=== PATIENT | female | born 1980 | race African-American/Black ===

== ENCOUNTER → 2017-08-01 | Outpatient (CLI) | payer OTHER ==
[2014-07-11 10:47] VITALS: BP 115/69
[~2017-08-01] MED LIST: IRON18TA PO; KETO15CR2 TP; LORA10CA PO; RABE20TA18 PO
--- NOTE | 2017-08-01 15:58 | RAD ---
Examination: Ultrasound soft tissue neck History: History of neck fullness Comparison: None available Findings: Small benign-appearing lymph nodes identified in the submandibular and cervical region. No obvious mass identified. Impression: Small benign-appearing subcentimeter lymph nodes identified in the cervical and submandibular region.
--- NOTE | 2017-08-01 16:03 | RAD ---
DATE: 07/24/2017 EXAM: DIGITAL DIAGNOSTIC BILATERAL, BREAST RIGHT HISTORY: Left breast heaviness for one year COMPARISON: 10/06/2015 This study was interpreted with the benefit of Computerized Aided Detection (CAD). FINDINGS: Breast Density: HETERO The breast parenchyma Is heterogeneiously dense, which could reduce sensitivity of mammography. Breast parenchyma level C. There is a small mass identified in the right breast at 10:00 position 2 cm from the nipple which appears slightly more prominent compared to prior exam. On targeted ultrasound of the right breast there is a 1.2 cm simple appearing cyst identified in this region. In the left breast on the mammogram there is a left breast nodule identified with a biopsy clip marker within likely known benign lesion. IMPRESSION: Probably benign findings. Recommend ultrasound right breast in 6 months. BI-RADS CATEGORY: 3 PROBABLE BENIGN-SHORT TERM F/U RECOMMENDED FOLLOW-UP: 6M 6 MONTH FOLLOW-UP PQRS compliance statement: Patient information was entered into a reminder system with a target due date 01/29/2018 for the next mammogram. Mammography is a sensitive method for finding small breast cancers, but it does not detect them all and is not a substitute for careful clinical examination. A negative mammogram does not negate a clinically suspicious finding and should not result in delay in biopsying a clinically suspicious abnormality. "Our facility is accredited by the [employer] Mammography [employer]."
== END | disposition home or self-care (01) ==
LOC: MAMMO 13:34
PROVIDERS: ATTEND Physician Assistant Medical
DX: N63 Unspecified lump in breast (principal); R22.1 Localized swelling, mass and lump, neck
CPT/HCPCS: 76536; 76641; G0204; 77066

== ENCOUNTER → 2017-10-24 | Outpatient (CLI) | payer OTHER ==
[2014-07-11 10:47] VITALS: BP 115/69
--- NOTE | 2017-10-24 12:44 | RAD ---
Pelvic ultrasound to include transabdominal and transvaginal imaging 10/24/2017 Clinical history: Right pelvic and suprapubic pain. Technique: Using the distended urinary bladder as a sonographic window, a real-time ultrasound examination of the pelvis was performed. Additionally in an attempt to better evaluate the uterus and adnexa, a transvaginal ultrasound study was performed. Multiple images were obtained. Findings: The uterus is not visualized consistent with a hysterectomy. The left ovary is not visualized consistent with a left oophorectomy. The right ovary is normal in size and echogenicity. It measures 4.9 x 4.0 x 2.2 cm in size. Normal color flow and pulse Doppler imaging to the right ovary is seen. No adnexal mass is noted. A very small amount of free fluid is seen within the pelvis. Impression: 1. Post hysterectomy and left oophorectomy 2. Very small amount of free fluid is seen within the pelvis. 3. Otherwise negative study.
== END | disposition home or self-care (01) ==
LOC: US 08:06
PROVIDERS: ATTEND Obstetrics & Gynecology
DX: R10.31 Right lower quadrant pain (principal); Z90.710 Acquired absence of both cervix and uterus; Z90.721 Acquired absence of ovaries, unilateral
CPT/HCPCS: 76830; 76856

== ENCOUNTER → 2017-11-12 | Outpatient (CLI) | payer OTHER ==
[2014-07-11 10:47] VITALS: BP 115/69
[2017-11-20 10:09] LABS: ADHR MODULATING AB <12 % (0-20)
[2017-11-21 09:04] LABS: ACHR BINDING AB <0.03
== END | disposition home or self-care (01) ==
LOC: LAB 10:25
PROVIDERS: ATTEND Internal Medicine Gastroenterology
DX: R13.10 Dysphagia, unspecified (principal); G70.00 Myasthenia gravis without (acute) exacerbation
CPT/HCPCS: 36415; 83519; 83520; 84238

== ENCOUNTER → 2017-12-20 | Outpatient (CLI) | payer OTHER ==
[2014-07-11 10:47] VITALS: BP 115/69
--- NOTE | 2017-12-20 11:40 | RAD ---
DATE: 12/20/2017 EXAM: Limited right breast ultrasound HISTORY: Hypoechoic right breast structure COMPARISON: Mammogram 08/01/2017, breast ultrasound 10/13/2015, 08/01/2017 Findings: There is a stable simple appearing cyst in the right breast 10:00 position 2 cm from the nipple with no internal blood flow measuring 1.3 x 0.5 x 0.8 cm. Impression: Stable simple appearing right breast cyst 10:00 position 2 cm from the nipple. BI-RADS CATEGORY: 2 BENIGN FINDING(S) RECOMMENDED FOLLOW-UP: CLIN FOLLOW UP IMAGING CLINICALLY INDICATED PQRS compliance statement: Patient information was entered into a reminder system with a target due date for the next mammogram. Mammography is a sensitive method for finding small breast cancers, but it does not detect them all and is not a substitute for careful clinical examination. A negative mammogram does not negate a clinically suspicious finding and should not result in delay in biopsying a clinically suspicious abnormality. "Our facility is accredited by the [employer] Mammography Program."
== END | disposition home or self-care (01) ==
LOC: MAMMO 10:03
PROVIDERS: ATTEND Family Medicine
DX: N63.10 Unspecified lump in the right breast, unspecified quadrant (principal)
CPT/HCPCS: 76641

== ENCOUNTER → 2018-01-07 | Outpatient (CLI) | payer OTHER ==
[2014-07-11 10:47] VITALS: BP 115/69
--- NOTE | 2018-01-07 10:38 | RAD ---
Thyroid sonography Clinical indications: Left thyroid nodule seen on MRI study of the cervical spine dated November 06, 2017. Findings: The longitudinal and AP and transverse dimensions of the right lobe of the thyroid gland are 4.3 cm and 1.4 centers and 1.4 cm respectively. There is a small cyst of the posterior mid aspect of the right lobe measuring 4 mm in size. There are 2 small heterogeneous slightly hypoechoic nodules of the lateral aspect of the isthmus on the right side. The medial one measures 6 mm in size. The lateral one measures 6 mm in size. The isthmus measures 3 mm in thickness within the midline. The longitudinal and AP transverse dimensions of the left lobe are 4.0 cm and 1.4 cm and 1.6 cm respectively. There is a slightly hypoechoic solid nodule of the posterior mid to lower aspect of the left lobe which measures 8 mm in greatest dimension. There is a small complex slightly hypoechoic nodule within the mid aspect measuring 3 mm in size. More superiorly and laterally within the mid aspect of the left lobe, similar nodule is seen measuring 4 mm in size. IMPRESSION: Small bilateral thyroid nodules. Recommend a follow-up sonogram in one year. Based on the report from the outside MRI study of the cervical spine performed on November 06, 2017, at [facility], a 2 cm left thyroid mass was indicated. No 2 cm thyroid mass is seen within the left lobe of the thyroid gland.
== END | disposition home or self-care (01) ==
LOC: US 08:54
PROVIDERS: ATTEND Family Medicine
DX: E04.2 Nontoxic multinodular goiter (principal)
CPT/HCPCS: 76536

== ENCOUNTER 2019-01-20 14:17 | Emergency (ER) | payer OTHER ==
[~2019-01-20] VITALS: Ht 167.6 cm; Wt 93.0 kg
[2019-01-20] MEDS ORDERED: IV NORMAL SALINE 1,000ML 1,000 ML IV SCH (14:31)
--- NOTE | 2019-01-20 14:40 | PHYS DOC ---
Past History Past Medical History: Migraines, Other Past Surgical History: Cholecystectomy, Hysterectomy, Other Additional Past Surgical Histo: HERNIA REPAIR, ABDOMINAL SURGERY FROM [facility] Smoking: Non-smoker Alcohol Use: None Drug Use: None Adult General Chief Complaint Chief Complaint: ABDOMINAL PAIN HPI HPI Patient is a 38-year-old female who presents to the emergency department for evaluation. She underwent a cystocele and bladder suspension surgery about 2 weeks ago, and has been having gradually worsening pain over the past few days in her left groin/hip/pelvic area, which seems to have worsened more intensely over the past 24 hours. She has not had any urinary symptoms, nausea or vomiting , or hematuria. She has had a slight amount of bleeding, but was told by her OB/ COLLECTION ANALYST, that this would be expected. She did undergo a follow-up appointment a week ago, during which there was in the internal inspection of sorts, per the patient. She went see her FANCY NEEDLEWORKER again today, and was sent to the emergency department due to the pain. She has not had any fevers or chills, nausea, vomiting. There are no alleviating or exacerbating factors to the patient's symptoms otherwise, although movement and palpation of her pelvic area worsens her pain. Review of Systems Review of Systems Constitutional: Denies fever or chills [] Eyes: Denies change in visual acuity, redness, or eye pain [] HENT: Denies nasal congestion or sore throat [] Respiratory: Denies cough or shortness of breath [] Cardiovascular: The patient denies any shortness of breath, chest pain, palpitations, or orthopnea [] GI: Denies nausea, vomiting, bloody stools or diarrhea [] : Denies dysuria or hematuria [] Musculoskeletal: Denies back pain or joint pain [] Integument: Denies rash or skin lesions [] Neurologic: Denies headache, focal weakness or sensory changes [] Endocrine: Denies polyuria or polydipsia [] All other systems were reviewed and found to be within normal limits, except as documented in this note. Current Medications Current Medications Current Medications Medications (Trade) Dose Ordered Sig/Cora Start Time Stop Time Status Last Admin Dose Admin Fentanyl Citrate (Fentanyl 2ml Vial) 50 mcg 1X ONCE 01/20/19 14:45 01/20/19 14:46 UNV Sodium Chloride 1,000 ml @ 1,000 mls/hr Q1H 01/20/19 14:31 01/20/19 15:30 UNV Allergies Allergies Allergies Coded Allergies Type Severity Reaction Last Updated Verified hydrocodone Allergy Unknown Rash 09/22/15 Yes Physical Exam Physical Exam PHYSICAL EXAM: CONSTITUTIONAL: Well developed, well nourished HEAD: normocephalic, atraumatic EENT: PERRL, EOMI. Conjunctivae normal color, sclerae non-icteric; moist mucous membranes. NECK: Supple, non-tender; no meningismus. LUNGS: Lungs CTA, breathing even and unlabored. Normal air movement. HEART: Regular rate and rhythm, no murmur CHEST: No deformity; non-tender ABDOMEN: The abdomen is soft, there is tenderness to palpation diffusely in the suprapubic and pelvic area, left greater than right, which significantly limits the exam. There is no obvious guarding or other abnormality to the abdomen, the remainder the abdomen is relatively soft and non-tender, no masses or bruits. EXTREM: Normal ROM; no deformity, no calf tenderness. Normal pulses palpable in all extremities. There is no pedal edema. SKIN: No rash; no diaphoresis NEURO: Alert; normal speech and cognition; CN's grossly intact; strength grossly intact without focal deficit. BACK: No CVA TTP. COLLECTION ANALYST: Normal external genitalia without any gross abnormality. Internal exam was not performed. External inspection was performed in the presence of the patient' s nurse. Current Patient Data Vital Signs Vital Signs Date Time Temp Pulse Resp B/P (MAP) Pulse Ox O2 Delivery O2 Flow Rate FiO2 01/20/19 14:33 101 18 123/66 (85) 97 Room Air Lab Results Laboratory Tests Test 01/20/19 15:15 01/20/19 15:40 White Blood Count 10.2 x10^3/uL Red Blood Count 4.14 x10^6/uL Hemoglobin 10.8 g/dL Hematocrit 34.3 % Mean Corpuscular Volume 83 fL Mean Corpuscular Hemoglobin 26 pg Mean Corpuscular Hemoglobin Concent 31 g/dL Red Cell Distribution Width 13.9 % Platelet Count 324 x10^3/uL Neutrophils (%) (Auto) 67 % Lymphocytes (%) (Auto) 22 % Monocytes (%) (Auto) 7 % Eosinophils (%) (Auto) 3 % Basophils (%) (Auto) 1 % Neutrophils # (Auto) 6.9 x10^3uL Lymphocytes # (Auto) 2.3 x10^3/uL Monocytes # (Auto) 0.7 x10^3/uL Eosinophils # (Auto) 0.3 x10^3/uL Basophils # (Auto) 0.0 x10^3/uL Sodium Level 137 mmol/L Potassium Level 3.6 mmol/L Chloride Level 101 mmol/L Carbon Dioxide Level 22 mmol/L Anion Gap 14 Blood Urea Nitrogen 12 mg/dL Creatinine 1.0 mg/dL Estimated GFR (Cockcroft-Gault) 74.3 BUN/Creatinine Ratio 12 Glucose Level 77 mg/dL Calcium Level 8.7 mg/dL Total Bilirubin 0.2 mg/dL Aspartate Amino Transf (AST/SGOT) 11 U/L Alanine Aminotransferase (ALT/SGPT) 13 U/L Alkaline Phosphatase 84 U/L Total Protein 6.2 g/dL Albumin 3.3 g/dL Albumin/Globulin Ratio 1.1 Urine Collection Type Unknown Urine Color Yellow Urine Clarity Hazy Urine pH 6.0 Urine Specific Trezevant <=1.005 Urine Protein Neg Urine Glucose (UA) Neg mg/dL Urine Ketones (Stick) Neg mg/dL Urine Blood Mod Urine Nitrite Neg Urine Bilirubin Neg Urine Urobilinogen Dipstick 1 mg/dL Urine Leukocyte Esterase Small Urine RBC 0 /HPF Urine WBC 1-4 /HPF Urine Squamous Epithelial Cells Few /LPF Urine Bacteria Few /HPF Current Medications Medications (Trade) Dose Ordered Sig/Cora Route PRN Reason Start Time Stop Time Status Last Admin Dose Admin Sodium Chloride 1,000 ml @ 1,000 mls/hr Q1H IV 01/20/19 14:31 01/20/19 15:30 DC 01/20/19 14:31 Fentanyl Citrate (Fentanyl 2ml Vial) 50 mcg 1X ONCE IV 01/20/19 15:00 01/20/19 15:01 DC 01/20/19 15:07 Iohexol (Omnipaque 300 Mg/ml) 75 ml 1X ONCE IV 01/20/19 15:00 01/20/19 15:01 DC 01/20/19 14:54 EKG EKG [] Radiology/Procedures Radiology/Procedures [PROCEDURE: CT ABD PELV W/ IV CONTRST ONLY PQRS Compliance statement: One or more of the following individualized dose reduction techniques were utilized for this examination: 1. Automated exposure control. 2. Adjustment of the mA and/or kV according to patient size. 3. Use of iterative reconstruction technique. Indication:LT groin pain radiating into leg. Cystocele repair and bladder sling two weeks ago. Severe pain in pelvis, past partial hysterectomy with remaining ovary.
TECHNIQUE: CT abdomen and pelvis with IV contrast with multiplanar reformats. COMPARISON: None FINDINGS: Heart is normal in size. No pericardial or pleural effusion. Scarring or subsegmental atelectasis in the bilateral lung bases. Left breast nodule is seen measuring 1 cm in the lower outer quadrant of the left breast. Liver, spleen, pancreas, adrenals within normal limits. Bilaterally malrotated kidneys. Right-sided extrarenal pelvis. No hydronephrosis. Simple appearing cyst in the right kidney measuring 1.5 cm. No nephrolithiasis. No free pelvic fluid or ascites. No inguinal hernia. No enlarged retroperitoneal or pelvic adenopathy. Large amount of colonic stool burden. No evidence of bowel obstruction. Appendix is not changes. Status post hysterectomy. Bilateral ovaries are seen. Urinary bladder is within normal limits. Nodular short segment wall thickening is seen of the distal transverse colon (series 2 image 26) . No pneumoperitoneum. 1.8 x 1.2 cm low attenuating lesion in the right labia most likely a Bartholin's gland cyst. No suspicious bony lesion. IMPRESSION: 1. Left lower outer quadrant breast nodule. Mammography recommended. 2. Large amount of colonic stool burden, patient may be constipated. 3. Short segment nodular wall thickening of the distal transverse colon may be secondary to peristalsis. If concern for colonic pathology is high for the evaluation with colonoscopy is recommended. ] Course & Med Decision Making Course & Med Decision Making Pertinent Labs and Imaging studies reviewed. (See chart for details) [4:20 PM: The patient's condition remained stable. I'm uncertain of the etiology of her symptoms. I discussed the case with the patient's surgeon, Dr. Weeks, who recommended I refilled the patient's tramadol, and she will follow up with the patient in the office. I discussed test results with the patient in detail, the need for close follow-up, and return precautions.] Dragon Disclaimer Dragon Disclaimer This electronic medical record was generated, in whole or in part, using a voice recognition dictation system. Departure Departure: Impression: Primary Impression: Groin pain Disposition: 01 HOME, SELF-CARE Condition: STABLE Referrals: BENNY ELLISON MD (PCP) Patient Instructions: Groin Strain, Pelvic Pain, Female Additional Instructions: Follow-up with Dr. Weeks for further evaluation in the next few days. Please call to schedule appointment. Additionally, the CT scan did show a breast nodule, which warrants a mammography , and some thickening of the colon which might warrant colonoscopy. Please follow-up with your primary care provider, we should obtain a copy of the CAT scan report, to help arrange further outpatient follow-up testing. Additionally , using a laxative may help improve your bowel movements. This is especially true when taking pain medication. Scripts Tramadol Hcl (TRAMADOL HCL) 50 Mg Tablet 50 MG PO PRN Q6HRS PRN for PAIN, #10 TAB Prov: PAMELLA SORIA MD 01/20/19 PAMELLA SORIA MD Jan 20, 2019 14:40
[2019-01-20] MEDS ORDERED: IOHEXOL 300 MG/ML 75 ML VIAL. IV ONE (15:00)
--- NOTE | 2019-01-20 15:24 | RAD ---
PQRS Compliance statement: One or more of the following individualized dose reduction techniques were utilized for this examination: 1. Automated exposure control. 2. Adjustment of the mA and/or kV according to patient size. 3. Use of iterative reconstruction technique. Indication:LT groin pain radiating into leg. Cystocele repair and bladder sling two weeks ago. Severe pain in pelvis, past partial hysterectomy with remaining ovary.
TECHNIQUE: CT abdomen and pelvis with IV contrast with multiplanar reformats. COMPARISON: None FINDINGS: Heart is normal in size. No pericardial or pleural effusion. Scarring or subsegmental atelectasis in the bilateral lung bases. Left breast nodule is seen measuring 1 cm in the lower outer quadrant of the left breast. Liver, spleen, pancreas, adrenals within normal limits. Bilaterally malrotated kidneys. Right-sided extrarenal pelvis. No hydronephrosis. Simple appearing cyst in the right kidney measuring 1.5 cm. No nephrolithiasis. No free pelvic fluid or ascites. No inguinal hernia. No enlarged retroperitoneal or pelvic adenopathy. Large amount of colonic stool burden. No evidence of bowel obstruction. Appendix is not changes. Status post hysterectomy. Bilateral ovaries are seen. Urinary bladder is within normal limits. Nodular short segment wall thickening is seen of the distal transverse colon (series 2 image 26) . No pneumoperitoneum. 1.8 x 1.2 cm low attenuating lesion in the right labia most likely a Bartholin's gland cyst. No suspicious bony lesion. IMPRESSION: 1. Left lower outer quadrant breast nodule. Mammography recommended. 2. Large amount of colonic stool burden, patient may be constipated. 3. Short segment nodular wall thickening of the distal transverse colon may be secondary to peristalsis. If concern for colonic pathology is high for the evaluation with colonoscopy is recommended. Electronically signed by: Evan Corado DO (01/20/2019 3:22 PM) [facility]
[2019-01-20 15:34] LABS: BASO % 1 % (0-3); EOS # 0.3 x10^3/uL (0.0-0.7); EOS % 3 % (0-3); HEMATOCRIT 34.3 % (36.0-47.0); HEMOGLOBIN 10.8 g/dL (12.0-15.5); LYMPH # 2.3 x10^3/uL (1.0-4.8); LYMPH % 22 % (24-48); MEAN CORPUSCULAR HEMOGLOBIN 26 pg (25-35); MEAN CORPUSCULAR HGB CONC 31 g/dL (31-37); MEAN CORPUSCULAR VOLUME 83 fL (79-100); MONO # 0.7 x10^3/uL (0.0-1.1); MONO % 7 % (0-9); NEUT # 6.9 x10^3uL (1.8-7.7); NEUT % 67 % (31-73); PLATELET COUNT 324 x10^3/uL (140-400); RED BLOOD COUNT 4.14 x10^6/uL (3.50-5.40); RED CELL DISTRIBUTION WIDTH 13.9 % (11.5-14.5); WHITE BLOOD COUNT 10.2 x10^3/uL (4.0-11.0)
[2019-01-20 15:47] LABS: ALBUMIN 3.3 g/dL (3.4-5.0); ALBUMIN/GLOBULIN RATIO 1.1 (1.0-1.7); CALCIUM 8.7 mg/dL (8.5-10.1); GFR 74.3; POTASSIUM 3.6 mmol/L (3.5-5.1); TOTAL BILIRUBIN 0.2 mg/dL (0.2-1.0); TOTAL PROTEIN 6.2 g/dL (6.4-8.2)
[2019-01-20 16:10] LABS: BILIRUBIN,URINE NEG (NEG); CLARITY,URINE HAZY; COLOR,URINE YELLOW; GLUCOSE,URINE NEG (NEG); NITRITE,URINE NEG (NEG); RBC,URINE 0 /HPF (0-2); UROBILINOGEN,URINE 1 mg/dL (0.2 mg/dL)
[2019-01-20 16:11] LABS: BACTERIA,URINE FEW /HPF (0-FEW); SQUAMOUS EPITHELIAL CELL,UR FEW /LPF
[2019-01-20 16:20] VITALS: BP 124/72
[2019-01-20] MEDS ORDERED: TRAM50TA PO (16:27)
[2019-03-04] MEDS ORDERED: RIZA10TA PO (14:47)
[2019-03-04] MEDS ORDERED: RAME8TAB19 PO (14:47)
[2019-03-04] MEDS ORDERED: OXYB15TA PO (14:47)
[2019-03-04] MEDS ORDERED: AMIT50TA PO (14:47)
[2019-03-04] MEDS ORDERED: METF750T2 PO (14:47)
[2019-03-04] MEDS ORDERED: CETI10TA16 PO (14:47)
[2019-03-04] MEDS ORDERED: PLEC3TAB PO (14:47)
[2019-03-04] MEDS ORDERED: FLUC150T PO (14:47)
== END 2019-01-20 16:40 | disposition home or self-care (01) ==
LOC: ER 14:17
DX: G89.18 Other acute postprocedural pain (principal); R10.32 Left lower quadrant pain; M25.552 Pain in left hip; N63.23 Unspecified lump in the left breast, lower outer quadrant; G43.909 Migraine, unspecified, not intractable, without status migrainosus; Z90.49 Acquired absence of other specified parts of digestive tract; Z90.710 Acquired absence of both cervix and uterus; Z98.890 Other specified postprocedural states; Z88.5 Allergy status to narcotic agent
CPT/HCPCS: 36415; 74177; 80053; 81001; 85025; 87086; 96374; 99284; J3010; Q9967; J7030

== ENCOUNTER → 2019-02-12 | Outpatient (CLI) | payer OTHER ==
[2019-01-20 16:20] VITALS: BP 124/72
[~2019-02-12] MED LIST changes: +AMIT50TA PO; +CETI10TA16 PO; +FLUC150T PO; +METF750T2 PO; +OXYB15TA PO; +PLEC3TAB PO; +RAME8TAB19 PO; +RIZA10TA PO; +TRAM50TA PO
[2019-02-12 15:09] LABS: BASO # 0.1 x10^3/uL (0.0-0.2); BASO % 1 % (0-3); EOS # 0.4 x10^3/uL (0.0-0.7); EOS % 4 % (0-3); HEMATOCRIT 38.5 % (36.0-47.0); HEMOGLOBIN 12.6 g/dL (12.0-15.5); LYMPH # 2.2 x10^3/uL (1.0-4.8); LYMPH % 25 % (24-48); MEAN CORPUSCULAR HEMOGLOBIN 27 pg (25-35); MEAN CORPUSCULAR HGB CONC 33 g/dL (31-37); MEAN CORPUSCULAR VOLUME 81 fL (79-100); MONO # 0.7 x10^3/uL (0.0-1.1); MONO % 7 % (0-9); NEUT # 5.8 x10^3uL (1.8-7.7); NEUT % 64 % (31-73); PLATELET COUNT 355 x10^3/uL (140-400); RED BLOOD COUNT 4.76 x10^6/uL (3.50-5.40); RED CELL DISTRIBUTION WIDTH 13.7 % (11.5-14.5); WHITE BLOOD COUNT 9.2 x10^3/uL (4.0-11.0)
[2019-02-12 15:14] LABS: ALBUMIN 3.8 g/dL (3.4-5.0); ALBUMIN/GLOBULIN RATIO 1.1 (1.0-1.7); CALCIUM 9.3 mg/dL (8.5-10.1); CREATININE 0.9 mg/dL (0.6-1.0); GFR 83.9; POTASSIUM 4.1 mmol/L (3.5-5.1); TOTAL BILIRUBIN 0.4 mg/dL (0.2-1.0); TOTAL PROTEIN 7.3 g/dL (6.4-8.2)
--- NOTE | 2019-02-12 15:15 | RAD ---
3 views of the abdomen 02/12/2019 INDICATION: Abdominal pain. COMPARISON STUDY: CT of the abdomen January 20, 2019 FINDINGS: The bowel gas pattern is nonobstructive. Surgical clips noted consistent with prior cholecystectomy. Rounded calcification in the left inferior abdomen is stable, a noted to be within mesenteric fat. Multiple pelvic malleolus are present. No acute osseous changes are seen. Surgical staple line appears to be present in the right lower quadrant. IMPRESSION: Nonobstructive bowel gas pattern. No acute radiographic abnormality identified. Electronically signed by: Jens Martinez MD (02/12/2019 3:12 PM) [id number]
[2019-02-12 16:14] LABS: SEDIMENTATION RATE 5 (0-25)
== END | disposition home or self-care (01) ==
LOC: PMG 14:23
PROVIDERS: ATTEND Physician Assistant
DX: R10.31 Right lower quadrant pain (principal); M54.5 Low back pain; K21.9 Gastro-esophageal reflux disease without esophagitis; Z90.49 Acquired absence of other specified parts of digestive tract
CPT/HCPCS: 36415; 74021; 80053; 82150; 83690; 85025; 85651

== ENCOUNTER → 2019-03-17 | Day surgery (SDC) | payer OTHER ==
[~2019-03-17] MED LIST changes: +ALBUTEROL SULFATE 2.5 MG/3 ML NEBU. NEB PRN; +ATROPINE 0.5 MG/5 ML DISP.SYRIN. IV PRN; +IV RINGERS SOLUTION,LACTATED 1,000 ML IV SCH; +LIDOCAINE 2% PF Vial for OR 5 ML VIAL. ONE; +NALOXONE 0.4 MG/ML VIAL. IV PRN; +ONDANSETRON PF 4 MG/2 ML VIAL. IV PRN; +PROPOFOL 40 ML IV ONE; +diphenhydrAMINE 50 MG/ML VIAL IV PRN
[2019-03-17 12:10] VITALS: BP 125/75
== END | disposition home or self-care (01) ==
LOC: SURG 10:17
PROVIDERS: ATTEND Internal Medicine Gastroenterology
DX: Z12.11 Encounter for screening for malignant neoplasm of colon (principal); K21.9 Gastro-esophageal reflux disease without esophagitis; G43.909 Migraine, unspecified, not intractable, without status migrainosus; G25.81 Restless legs syndrome; E28.2 Polycystic ovarian syndrome; Z80.0 Family history of malignant neoplasm of digestive organs; Z79.82 Long term (current) use of aspirin; Z79.899 Other long term (current) drug therapy; E66.09 Other obesity due to excess calories; Z68.33 Body mass index [BMI] 33.0-33.9, adult; Z90.49 Acquired absence of other specified parts of digestive tract; Z90.710 Acquired absence of both cervix and uterus; Z98.890 Other specified postprocedural states; Z82.49 Family history of ischemic heart disease and other diseases of the circulatory system; Z82.3 Family history of stroke; Z82.61 Family history of arthritis; Z88.5 Allergy status to narcotic agent
CPT/HCPCS: 45378; J2704; J7120; J2001

== ENCOUNTER → 2019-06-12 | Outpatient (CLI) | payer MEDICAID ==
[2019-03-17 12:10] VITALS: BP 125/75
[~2019-06-12] MED LIST changes: -ALBUTEROL SULFATE 2.5 MG/3 ML NEBU. NEB PRN; -ATROPINE 0.5 MG/5 ML DISP.SYRIN. IV PRN; -IV RINGERS SOLUTION,LACTATED 1,000 ML IV SCH; -LIDOCAINE 2% PF Vial for OR 5 ML VIAL. ONE; -NALOXONE 0.4 MG/ML VIAL. IV PRN; -ONDANSETRON PF 4 MG/2 ML VIAL. IV PRN; -PROPOFOL 40 ML IV ONE; -diphenhydrAMINE 50 MG/ML VIAL IV PRN
[2019-06-12 14:38] LABS: ALBUMIN 3.9 g/dL (3.4-5.0); ALBUMIN/GLOBULIN RATIO 1.1 (1.0-1.7); CALCIUM 9.1 mg/dL (8.5-10.1); GFR 73.9; TOTAL BILIRUBIN 0.8 mg/dL (0.2-1.0); TOTAL PROTEIN 7.3 g/dL (6.4-8.2)
[2019-06-13 03:10] LABS: TESTOSTERONE TOTAL <3 ng/dL (8-48)
[2019-06-13 16:06] LABS: INSULIN LEVEL 18.8 uIU/mL (2.6-24.9)
== END | disposition home or self-care (01) ==
LOC: LAB 13:00
PROVIDERS: ATTEND Obstetrics & Gynecology
DX: E16.1 Other hypoglycemia (principal)
CPT/HCPCS: 36415; 80053; 83525; 84403

== ENCOUNTER → 2019-07-31 | Outpatient (CLI) | payer MEDICAID ==
[2019-03-17 12:10] VITALS: BP 125/75
[~2019-07-31] MED LIST changes: -METF750T2 PO; +METF750T39 PO
--- NOTE | 2019-07-31 16:05 | RAD ---
EXAM: Pelvic sonogram. HISTORY: Right lower quadrant pain. TECHNIQUE: Sonographic imaging of the pelvis was performed. COMPARISON: CT dated 01/10/2019 and sonogram dated 10/24/2017. FINDINGS: The uterus is surgically absent. The left ovary is surgically absent. The right ovary is normal in size and demonstrates normal blood flow. No adnexal mass, cyst or fluid collection is seen. IMPRESSION: 1. Surgically absent uterus and left ovary. 2. Unremarkable right ovary. Electronically signed by: Nelia Aguilera MD (07/31/2019 4:02 PM) [place] [id number]
== END | disposition home or self-care (01) ==
LOC: US 14:50
PROVIDERS: ATTEND Obstetrics & Gynecology
DX: R10.31 Right lower quadrant pain (principal); Z90.710 Acquired absence of both cervix and uterus; Z90.721 Acquired absence of ovaries, unilateral; Z87.42 Personal history of other diseases of the female genital tract
CPT/HCPCS: 76856

== ENCOUNTER → 2019-08-06 | Outpatient (CLI) | payer MEDICAID ==
[2019-03-17 12:10] VITALS: BP 125/75
--- NOTE | 2019-08-07 19:06 | RAD ---
DATE: 08/06/2019 EXAM: DIGITAL DIAGNOSTIC BILATERAL, BREAST RIGHT HISTORY: Benign bilateral breast biopsies. COMPARISON: 10/06/2015 and 07/24/2017 mammographic exams This study was interpreted with the benefit of Computerized Aided Detection (CAD). Breast Density: HETERO The breast parenchyma is heterogenously dense, which could reduce sensitivity of mammography. Breast parenchyma level C. FINDINGS: Left outer breast mass with biopsy clip marker is stable. No suspicious calcifications or distortion. There is a new asymmetry involving the right breast which appears to be at the upper central aspect of the bases of rolled views obtained in the CC projection. It is not definitely delineated on the MLO projection but may be at the upper aspect. No new left breast mass. Limited right breast ultrasound exam was performed. At the 12:00 region, there is a hypoechoic mass measuring 0.5 cm x 0.7 cm x 0.2 cm tall. It is well-circumscribed. No flow within it. IMPRESSION: Suspicious right breast 12:00 region mass. BI-RADS CATEGORY: 4 SUSPICIOUS ABNORMALITY- BIOPSY SHOULD BE CONSIDERED RECOMMENDED FOLLOW-UP: BIO BIOPSY RECOMMENDED. Ultrasound-guided core biopsy should be considered. PQRS compliance statement: Patient information was entered into a reminder system with a target due date for the next mammogram. Mammography is a sensitive method for finding small breast cancers, but it does not detect them all and is not a substitute for careful clinical examination. A negative mammogram does not negate a clinically suspicious finding and should not result in delay in biopsying a clinically suspicious abnormality. "Our facility is accredited by the [employer] Mammography Program."
== END | disposition home or self-care (01) ==
LOC: MAMMO 13:51
PROVIDERS: ATTEND Obstetrics & Gynecology
DX: N63.20 Unspecified lump in the left breast, unspecified quadrant (principal); R91.8 Other nonspecific abnormal finding of lung field
CPT/HCPCS: 76641; 77066

== ENCOUNTER → 2019-08-14 | Outpatient (CLI) | payer MEDICAID ==
[2019-03-17 12:10] VITALS: BP 125/75
[~2019-08-14] MED LIST changes: +IOHEXOL 300 MG/ML 75 ML VIAL. IV ONE
--- NOTE | 2019-08-14 10:35 | RAD ---
PQRS Compliance Statement: One or more of the following individualized dose reduction techniques were utilized for this examination: 1. Automated exposure control 2. Adjustment of the mA and/or kV according to patient size 3. Use of iterative reconstruction technique Neck CT with contrast: 08/14/2019 Indication: Thyroid nodule. Technique: Multiple axial images were obtained through the neck following intravenous injection of contrast material. Coronal and sagittal reformats are provided. Comparison: Thyroid ultrasound 01/07/2018. Findings: The visualized brain parenchyma appears intact. The skull base is normal. Orbits are normal in appearance with exception of left lens replacement. Tiny mucus retention cysts are identified in the maxillary sinuses bilaterally. The sella turcica and cavernous sinus regions appear intact. The mastoid air cells are normal. The fossa of Rosenmuller is normal. The parotid space contents and blood bank specialist space contents appear intact. The parapharyngeal spaces are normal. The submandibular and sublingual space contents appear intact. The epiglottis, aryepiglottic folds, and piriform sinuses are normal. The vallecula appears normal. The larynx and trachea are normal. The thyroid lobes appear intact. The carotid space contents are normal. There is no deep cervical chain adenopathy observed. The jugulodigastric regions appear intact. The perivertebral space contents are normal. The supraclavicular regions appear intact. The visualized mediastinum is normal. The visualized lungs appear intact. The visualized osseous structures are normal. Mild tortuosity of the right vertebral artery with minimal scalloping of the right C4 vertebral body. Impression: No pathologically enlarged cervical lymph nodes are identified. No suspicious thyroid nodules are visualized by CT. There is persistent clinical concern, further evaluation with ultrasound is recommended. Electronically signed by: Kristine Lucio MD (08/14/2019 10:32 AM) [id number]
== END | disposition home or self-care (01) ==
LOC: CT 08:59
PROVIDERS: ATTEND Family Medicine
DX: M27.40 Unspecified cyst of jaw (principal)
CPT/HCPCS: 70491; Q9967

== ENCOUNTER → 2021-08-18 | Outpatient (CLI) | payer BC ==
[2019-03-17 12:10] VITALS: BP 125/75
[~2021-08-18] MED LIST changes: -IOHEXOL 300 MG/ML 75 ML VIAL. IV ONE; -OXYB15TA PO; +OXYB15TA18 PO; -PLEC3TAB PO; +PLEC3TAB2 PO
--- NOTE | 2021-08-19 06:15 | RAD ---
US PELVIS COMPLETE History: Reason: COLICKY, RLQ PAIN, CHRONIC NIGHT SWEATS / Spl. Instructions: PARTIAL HYSTERECTOMY, L T OOPHERECTOMY AT 18 / History: Comparison: None Technique: Grayscale and color Doppler imaging of the pelvis was performed using transabdominal techn ique. Findings: Prior hysterectomy and left oophorectomy. Right ovary measures 4.9 x 3.2 x 2.1 cm. Normal Doppler flow to the right ovary. IMPRESSION: 1. Prior hysterectomy. 2. Unremarkable right ovary. Electronically signed by: Leonardo Zepeda DO (08/19/2021 6:13 AM) [facility]
== END ==
LOC: US 15:55
PROVIDERS: ATTEND Family Medicine
DX: R61 Generalized hyperhidrosis (principal); R10.31 Right lower quadrant pain; Z86.16 Personal history of COVID-19; Z90.710 Acquired absence of both cervix and uterus
CPT/HCPCS: 76856